=== PATIENT | male | born 1985 | race Caucasian/White ===

== ENCOUNTER 2018-06-07 08:57 | Emergency (ER) | payer OTHER ==
[2018-06-07 09:01] VITALS: BP 142/77
--- NOTE | 2018-06-07 09:20 | ER Document Report ---
HPI - HPI Patient complains to provider of: eye Irritation Time Seen by Provider: 06/07/18 09:11 Onset: Last week Pain Level: 3 Context: Patient complains of bilateral eye irritation that started last week. Patient states that he was seen last week and treated for conjunctivitis and given eyedrops. Patient feels as though his eye irritation symptoms worsened after starting the antibiotic eyedrops. Patient complains of redness and tearing with dry skin to the eyelids. Patient denies any use of contact lenses. Patient denies any injury to the eye. Associated Symptoms: Other - Eye redness, tearing Exacerbated by: Denies Relieved by: Denies Similar symptoms previously: No Recently seen / treated by doctor: Yes - ROS ROS below otherwise negative: Yes Systems Reviewed and Negative: Yes All other systems reviewed and negative - CONSTITUTIONAL Constitutional: DENIES: Fever - EENT EENT: REPORTS: Eye problems - GASTROINTESTINAL Gastrointestinal: DENIES: Nausea - DERM Skin Color: Normal Notes: Dryness to the infraorbital area Past Medical History - General Information source: Patient - Social History Smoking Status: Current Every Day Smoker Smoking Education Provided: Yes Frequency of alcohol use: None Drug Abuse: None Occupation: none Family History: None, Reviewed & Not Pertinent Pulmonary Medical History: Reports: Hx Bronchitis Neurological Medical History: Reports: Hx Migraine GI Medical History: Reports: Hx Gastroesophageal Reflux Disease Psychiatric Medical History: Reports: Hx Attention Deficit Hyperactivity Disorder, Hx Depression, Hx Post Traumatic Stress Disorder Surgical Hx: Negative - Immunizations Hx Diphtheria, Pertussis, Tetanus Vaccination: Yes Vertical Provider Document - CONSTITUTIONAL Agree With Documented VS: Yes Exam Limitations: No Limitations General Appearance: WD/WN, Cachetic - INFECTION CONTROL TRAVEL OUTSIDE OF THE [place] IN LAST 30 DAYS: No - HEENT HEENT: Atraumatic, Normocephalic Notes: Sclera bilaterally injected, no mucoid drainage, patient with dry skin to the infraorbital area, Eryn, extraocular movements intact. No corneal abrasion, ulcer or foreign body or dendrite - NECK Neck: Normal Inspection - RESPIRATORY Respiratory: No Respiratory Distress - MUSCULOSKELETAL/EXTREMETIES Musculoskeletal/Extremeties: MAEW, FROM - NEURO Level of Consciousness: Awake, Alert, Appropriate Motor/Sensory: No Motor Deficit - DERM Integumentary: Warm, Dry, No Rash Course - Re-evaluation Re-evalutation: 06/07/18 09:27 Suspect patient likely may be having a sensitivity reaction to the Cipro drops. Will change the drops at this time encourage follow-up with an resaw operator for further evaluation. - Vital Signs Vital signs: Temp Pulse Resp BP Pulse Ox 98.0 F 82 20 142/77 H 98 06/07/18 08:59 06/07/18 08:59 06/07/18 08:59 06/07/18 08:59 06/07/18 08:59 Discharge - Discharge Clinical Impression: Redness of both eyes Condition: Stable Disposition: HOME, SELF-CARE Instructions: Conjunctivitis, Allergic, Eyedrop Use ([facility]) Additional Instructions: Return immediately for any new or worsening symptoms Follow-up with resaw operator for further evaluation, call today for an appointment Prescriptions: Olopatadine HCl [Pataday] 1 drop OP DAILY #2.5 ml Referrals: [facility] [Provider Group] - Follow up as needed
== END 2018-06-07 09:37 | disposition home or self-care (01) ==
LOC: ER 08:57
DX: H10.9 Unspecified conjunctivitis (principal); F17.200 Nicotine dependence, unspecified, uncomplicated
CPT/HCPCS: 99283